=== PATIENT | female | born 1965 | race Caucasian/White ===

== ENCOUNTER 2021-02-04 18:13 | Emergency (ER) | payer OTHER ==
[~2021-02-04] VITALS: Ht 170.2 cm; Wt 81.7 kg
[2021-02-04 18:52] LABS: ABSOLUTE EOSINOPHILS 0.1 thou/uL (0.0-0.7); ABSOLUTE MONOCYTES 0.4 thou/uL (0.0-1.2); ABSOLUTE NEUTROPHILS 3.1 thou/uL (1.6-8.1); BASOPHILS 0.7 %; EOSINOPHILS 1.5 %; HEMATOCRIT 39.6 % (37.0-47.0); HEMOGLOBIN 13.9 gm/dL (12.0-15.0); LYMPHOCYTES 22.1 %; MCH 31.2 pg (26.0-34.0); MCHC 35.1 g/dL (28.0-37.0); MONOCYTES 7.9 %; MPV 10.3 fl. (7.2-11.1); NUCLEATED RBCS 0 /100WBC; PLATELET COUNT* 139 thou/uL (150-400); POLYS 67.8 %; RBC 4.45 mil/uL (4.20-5.00); RDW-CV 12.9 % (10.5-14.5); WBC 4.6 thou/uL (4.0-11.0)
[2021-02-04 19:02] LABS: CALCIUM 8.6 mg/dL (8.5-10.1); CREATININE 0.8 mg/dL (0.6-1.3); POTASSIUM 3.5 mmol/L (3.5-5.1)
[2021-02-04 19:15] LABS: ALBUMIN 4.1 g/dL (3.4-5.0); CK-MB MASS 0.9 ng/mL (<0.5-3.6); MAGNESIUM 2.1 mg/dL (1.8-2.4); TOTAL BILIRUBIN 0.3 mg/dL (<0.1-1.0); TOTAL PROTEIN 7.1 g/dL (6.4-8.2)
[2021-02-04 21:41] VITALS: BP 129/57
--- NOTE | 2021-02-05 11:50 | EKG ---
[place] [address] ELECTROCARDIOGRAM REPORT Name: SILVESTRE MCKEE Room: [facility]#: [id number] Admission: 02/04/21 Attend Phys: Discharge: 02/04/21 Date of : 63 Date of Service: 02/04/211816 Report #: [id number] THIS REPORT FOR: //name// [facility] ED Test Date: 2021-02-04 Test Time: 18:17:11 Pat Name: SILVESTRE MCKEE Department: Room: Gender: F Division Service Manager: LUDMILA : 1965 Requested By: Dell Naik Order Number: [id number] MD: Lizandro Hsu Measurements Intervals [place] Rate: 94 P: 58 [place]: 147 QRS: -16 QRSD: 92 T: 15 QT: 373 QTc: 467 Interpretive Statements Sinus rhythm Probable left atrial enlargement No previous ECG available for comparison Electronically Signed On 02-05-2021 11:50:30 CDT by Lizandro Hsu [email or web address] <ELECTRONICALLY SIGNED> By: Lizandro Hsu MD, [facility] 02/05/21 1150 181 181 Lizandro Hsu MD, [facility] /EPI
== END 2021-02-04 21:42 | disposition still patient (30) ==
LOC: M.ERS 18:13
PROVIDERS: Family Medicine
DX: R07.89 Other chest pain (principal); Z98.51 Tubal ligation status